=== PATIENT | male | born 1990 | race Caucasian/White ===

== ENCOUNTER 2018-10-15 10:04 | Day surgery (SDC) | payer OTHER ==
[2018-10-15] VITALS (15 sets, daily range): BP systolic 113–159; BP diastolic 56–75; PULSE 71–112; RESP 9–20; Ht 167.6 cm; Wt 67.5 kg
[~2018-10-15] VITALS: Ht 167.6 cm; Wt 67.5 kg
--- NOTE | 2018-10-15 11:47 | PREAC ---
Date/Time of Note Date/Time of Note DATE: 10/15/18 TIME: 11:45 Anesthesia Eval and Record Evaluation Time Pre-Procedure Interview DATE: 10/15/18 TIME: 11:45 Age 28 Sex male NPO: 8 hrs Preoperative diagnosis cholelithiasis Planned procedure laparoscopic possible open cholecystectomy Past Medical History Past Medical History: None Surgery & Anesthesia Issues No known issue (PSHX appendectomy) Meds Anticoagulation: No Beta Aretha within 24 hr: No Reason Beta Aretha not given: Pt. not on B-Aretha No Active Prescriptions or Reported Meds Meds reviewed: Yes (last dose PRN Ibuprofen 10/10/18) Allergies Coded Allergies: No Known Allergy (Unverified , 10/15/18) Allergies Reviewed: Yes Labs/Studies Labs Reviewed: Other (N/A) test: N/A Pre-procedure Exam Last vitals Vital Signs Date Temp Pulse Resp B/P (MAP) Pulse Ox O2 O2 Flow FiO2 Time Delivery Rate 10/15/18 98.1 71 16 113/56 98 11:12 (75) Airway: Adequate mouth opening, Adequate thyromental dist Mallampati: Mallampati II Teeth: Normal Lung: Normal Heart: Normal ASA Physical Status ASA physical status: 1 Emergency: None Planned Anesthetic General/MAC: ETT Nerve block: TAP (bilateral) Planned Pain Management Single shot nerve block, Parenteral pain med, Local by surgeon Pre-operative Attestations Prior to commencing anesthesia and surgery, the patient was re-evaluated, there was verification of: *The patient's identity *The results of appropriate recent lab work and preoperative vital signs *The above evaluation not changing prior to induction *Anesthetic plan, risk benefits, alternative and complications discussed with patient/family; questions answered; patient/family understands, accepts and wishes to proceed. MINA LEONARD Oct 15, 2018 11:47
[2018-10-15] MEDS ORDERED: ROCURONIUM 50 MG INJ ONE (12:04)
[2018-10-15] MEDS ORDERED: NEOSTIGMINE 3 MG/3 ML SYRINGE ONE (12:04)
[2018-10-15] MEDS ORDERED: PROPOFOL 20 ML ONE (12:04)
[2018-10-15] MEDS ORDERED: CEFAZOLIN 1 GM INJ ONE (12:04)
[2018-10-15] MEDS ORDERED: GLYCOPYRROLATE 0.4 MG INJ ONE (12:04)
[2018-10-15] MEDS ORDERED: DEXAMETHASONE 4 MG/ML 5 ML INJ ONE (12:05)
[2018-10-15] MEDS ORDERED: MIDAZOLAM 1 MG/ML 2 ML INJ ONE (12:05)
[2018-10-15] MEDS ORDERED: ONDANSETRON 4 MG INJ ONE (12:05)
[2018-10-15] MEDS ORDERED: FENTAnyl 50 MCG/ML VIAL ONE ×2 (12:05→13:05)
[2018-10-15] MEDS ORDERED: MEPERIDINE 25 MG INJ IV PRN (12:30)
[2018-10-15] MEDS ORDERED: HYDROmorphONE 1 MG/5 ML IV SYRINGE IV PRN ×3 (12:30)
[2018-10-15] MEDS ORDERED: EPHEDrine SULFATE 50 MG/5 ML SYG IV PRN (12:30)
[2018-10-15] MEDS ORDERED: MIDAZOLAM 1 MG/ML 2 ML INJ IV PRN (12:30)
[2018-10-15] MEDS ORDERED: OXYCODONE/ACETAMINOPHEN (5/325) TAB PO PRN ×2 (12:30)
[2018-10-15] MEDS ORDERED: ONDANSETRON 4 MG INJ IV PRN (12:30)
[2018-10-15] MEDS ORDERED: ALBUTEROL 0.083% (NEB) 2.5 MG/3 ML AMP HHN PRN (12:30)
[2018-10-15] MEDS ORDERED: FENTAnyl 50 MCG/ML VIAL IV PRN ×3 (12:30)
[2018-10-15] MEDS ORDERED: hydrALAzine 20 MG INJ IV PRN (12:30)
[2018-10-15] MEDS ORDERED: TRIMETHOBENZAMIDE 100 MG/ML VIAL IM PRN (12:30)
[2018-10-15] MEDS ORDERED: LABETALOL HCL 20MG INJ IV PRN (12:30)
[2018-10-15] MEDS ORDERED: DIPHENHYDRAMINE 50 MG INJ IV PRN (12:30)
[2018-10-15] MEDS ORDERED: IPRATROPIUM (NEB) 0.5 MG/2.5 ML AMP HHN PRN (12:30)
[2018-10-15] MEDS ORDERED: ROPIVACAINE 0.5 % 30 ML VIAL ONE (12:32)
--- NOTE | 2018-10-15 13:19 | OPR ---
Date/Time of Note Date/Time of Note DATE: 10/15/18 TIME: 13:14 Operative Report Procedure Date: Oct 15, 2018 Preoperative Diagnosis symptomatic gallstones Postoperative Diagnosis same Operation/Procedure Performed laparoscopic cholecystectomy Surgeon see signature line [employer]ricator Special Items Bhargav Ramos Anesthesia Type: general Estimated Blood Loss: 0 - 10 ml's Transfusion none Specimen gallbladder Grafts/Implants none Complications none Pt Condition Post Procedure: stable Indications This is a 28-year-old male with symptomatic gallstones. He requires surgical excision of his gallbladder. Risks alternatives benefits and percent were discussed the patient. Patient expressed understanding consents to the operation. Procedure Description Patient is taken to the OR and prepped and draped in usual sterile fashion. Surgical time was performed. IV antibiotics were given. Infraumbilical transverse incision was made with a 15 blade. Dissection with cautery was carried onto the fascia. The fascia was grasped with [place]'s and divided with curved Bazan scissors. 0 Vicryl U stitch was placed into the fascia. Tena trocar was introduced. Pneumoperitoneum is established. Midepigastric 12 mm optical trochars placed under direct visualization. Right upper quadrant upper flank 5 mm optical trochars were placed under direct visualization. Upon initial inspection there is adhesions to the gallbladder which are taken down bluntly. The gallbladder was grasped the fundus and retracted in a lateral cephalad direction. [place] graspers were used to dissect out the cystic duct and cystic artery. The critical view was established. The cystic duct is divided to close proximally clipped distal and the division was performed laparoscopic scissors. Cystic artery was divided to close proximally clipped distal and the division was performed laparoscopic scissors. Gallbladder signal of the gallbladder bed. Good hemostasis established. The gallbladder is retrieved in an Endo Catch bag. Minimal suction irrigation was used. All ports were removed under direct position. 0 Vicryl U stitch was tied down. Skin is closed and skin diane. A tap block was provided by the anesthesiologist at the beginning the case. Dry dressings were applied. Rupa JIMENEZ Oct 15, 2018 13:19
--- NOTE | 2018-10-15 13:27 | PAC ---
Date/Time of Note Date/Time of Note DATE: 10/15/18 TIME: 13:27 Post-Anesthesia Notes Post-Anesthesia Note Last documented vital signs Vital Signs Date Temp Pulse Resp B/P (MAP) Pulse Ox O2 O2 Flow FiO2 Time Delivery Rate 10/15/18 98.1 71 16 113/56 98 11:12 (75) Activity: WNL Respiratory function: WNL Cardiovascular function: WNL Mental status: Baseline Pain reasonably controlled: Yes Hydration appropriate: Yes Nausea/Vomiting absent: Yes Dom Campos M.D. Oct 15, 2018 13:27
[2018-10-15] MEDS ORDERED: HYDROCODONE/APAP (5/325) TAB PO ONE (13:30)
== END 2018-10-15 17:06 | disposition home or self-care (01) ==
LOC: SDS 10:04
PROVIDERS: ATTEND Surgery
DX: K80.10 Calculus of gallbladder with chronic cholecystitis without obstruction (principal)
CPT/HCPCS: 47562; 88304; J0690; J1100; J2175; J2250; J2405; J2710; J2795; J3010